=== PATIENT | female | born 1985 | race Caucasian/White ===

== ENCOUNTER 2022-10-13 10:08 | Emergency (ER) | payer OTHER ==
[~2022-10-13] VITALS: Ht 165.1 cm; Wt 59.0 kg
[2022-10-13 10:26] VITALS: BP 150/98
[2022-10-13 15:49] LABS: *AMPHETAMINES SCREEN URINE NEGATIVE (NEGATIVE); *BARBITURATES SCREEN URINE NEGATIVE (NEGATIVE); *BENZODIAZEPINES SCREEN URINE NEGATIVE (NEGATIVE); *COCAINE SCREEN URINE NEGATIVE (NEGATIVE); CANNABINOID URINE SCREEN NEGATIVE (NEGATIVE); METHADONE URINE SCREEN NEGATIVE (NEGATIVE); OPIATES URINE SCREEN NEGATIVE (NEGATIVE); PHENCYCLIDINE URINE SCREEN NEGATIVE (NEGATIVE)
== END 2022-10-13 15:52 | disposition home or self-care (01) ==
LOC: ER 10:08
DX: B34.9 Viral infection, unspecified (principal); Z20.822 Contact with and (suspected) exposure to COVID-19; Z98.51 Tubal ligation status
CPT/HCPCS: 71045; 80305; 81025; 87426; 87804; 99284; C9803

== ENCOUNTER 2022-12-15 15:21 | Emergency (ER) | payer OTHER ==
[~2022-12-15] VITALS: Ht 165.1 cm; Wt 65.0 kg
[2022-12-15 15:44] VITALS: BP 112/77
[2022-12-15 19:18] LABS: BASOPHILS % 0.4 % (0.0-2.0); EOSINOPHILS % 2.2 % (0.0-5.0); HEMATOCRIT. 37.7 % (36.0-48.0); HEMOGLOBIN. 12.3 g/dL (12.0-16.0); LYMPHOCYTES % 33.8 % (20.0-50.0); MEAN CORPUSCULAR VOLUME 85.7 fL (81.0-99.0); MONOCYTES % 10.8 % (2.0-8.0); NEUTROPHILS % 52.8 % (40.0-76.0); PLATELET 323 x1000/uL (130-400); RED CELL DISTRIBUTION WIDTH 14.8 % (11.6-14.6)
[2022-12-15 19:28] LABS: HCG SCREEN NEGATIVE
[2022-12-15 19:29] LABS: CHLORIDE 108 mEq/L (98-107)
== END 2022-12-15 20:53 | disposition home or self-care (01) ==
LOC: ER 15:21
DX: R07.9 Chest pain, unspecified (principal); I51.7 Cardiomegaly; E78.00 Pure hypercholesterolemia, unspecified; F17.210 Nicotine dependence, cigarettes, uncomplicated; Z98.890 Other specified postprocedural states; Z98.51 Tubal ligation status
CPT/HCPCS: 36415; 71045; 80053; 83880; 84484; 84703; 85025; 93005; 99285

== ENCOUNTER 2023-01-19 01:54 | Emergency (ER) | payer OTHER ==
[~2023-01-19] VITALS: Ht 165.1 cm; Wt 65.1 kg
[2023-01-19 02:03] VITALS: BP 126/84
[2023-01-19] MEDS ORDERED: IBUPROFEN 400MG TABLET PO ONE (03:00)
[2023-01-19] MEDS ORDERED: ACETAMINOPHEN 325MG TABLET PO ONE (03:00)
[2023-01-19] MEDS ORDERED: NAPR500T7 MT (04:47)
[2023-01-19] MEDS ORDERED: TOPUD MT (04:47)
[2023-01-20] MEDS ORDERED: T3 PO (18:55)
== END 2023-01-19 05:07 | disposition home or self-care (01) ==
LOC: ER 01:54
DX: S52.122A Displaced fracture of head of left radius, initial encounter for closed fracture (principal); W05.1XXA Fall from non-moving nonmotorized scooter, initial encounter; Y93.89 Activity, other specified; Y92.89 Other specified places as the place of occurrence of the external cause; Y99.8 Other external cause status
CPT/HCPCS: 29125; 73080; 73110; 99284; A4565

== ENCOUNTER 2023-01-20 17:39 | Emergency (ER) | payer OTHER ==
[~2023-01-20] VITALS: Ht 165.1 cm; Wt 62.7 kg
[~2023-01-20 17:39] MED LIST: NAPR500T7 MT; TOPUD MT
[2023-01-20 17:48] VITALS: BP 127/64
[2023-01-20] MEDS ORDERED: T3 PO (18:55)
[2023-01-20] MEDS ORDERED: HYDROCODONE/ACETAMINOPHEN 5/325MG TABLET PO ONE (19:00)
== END 2023-01-20 20:21 | disposition home or self-care (01) ==
LOC: ER 17:39
DX: S42.302A Unspecified fracture of shaft of humerus, left arm, initial encounter for closed fracture (principal); X58.XXXA Exposure to other specified factors, initial encounter; Y93.89 Activity, other specified; Y92.89 Other specified places as the place of occurrence of the external cause; Y99.8 Other external cause status; Z98.890 Other specified postprocedural states
CPT/HCPCS: 81025; 99283

== ENCOUNTER 2023-01-23 16:49 | Emergency (ER) | payer OTHER ==
[~2023-01-23] VITALS: Ht 165.1 cm; Wt 59.1 kg
[~2023-01-23 16:49] MED LIST changes: +T3 PO
[2023-01-23 17:10] VITALS: BP 146/85
[2023-01-23] MEDS ORDERED: ACETAMINOPHEN 325MG TABLET PO ONE (19:00)
== END 2023-01-23 19:35 | disposition home or self-care (01) ==
LOC: ER 16:49
DX: S52.91XA Unspecified fracture of right forearm, initial encounter for closed fracture (principal); X58.XXXA Exposure to other specified factors, initial encounter; Y93.89 Activity, other specified; Y92.89 Other specified places as the place of occurrence of the external cause; Y99.8 Other external cause status
CPT/HCPCS: 29105; 73060; 81025; 99283

== ENCOUNTER 2023-07-20 08:45 | Emergency (ER) | payer OTHER ==
[~2023-07-20] VITALS: Ht 160 cm; Wt 68.0 kg
[2023-07-20 09:04] VITALS: O2SAT 100
[2023-07-20] MEDS ORDERED: MAGNESIUM/ALUMINUM HYDROXIDE/SIMETHICONE 30ML UDC PO STA (09:20)
[2023-07-20 09:30] LABS: BASOPHILS % 0.6 % (0.0-2.0); EOSINOPHILS % 2.2 % (0.0-5.0); HEMOGLOBIN. 12.8 g/dL (12.0-16.0); MEAN CORPUSCULAR HEMOGLOBIN 27.8 pg (28.0-32.0); MEAN CORPUSCULAR HGB CONC 32.9 g/dL (31.0-37.0); MEAN CORPUSCULAR VOLUME 84.6 fL (81.0-99.0); MEAN PLATELET VOLUME 9.8 fl (7.4-10.4); MONOCYTES % 7.1 % (2.0-8.0); NEUTROPHILS % 63.1 % (40.0-76.0); PLATELET 226 x1000/uL (130-400); RED BLOOD CELL COUNT 4.61 mill/uL (4.2-5.4); RED CELL DISTRIBUTION WIDTH 16.5 % (11.6-14.6); WHITE BLOOD COUNT 6.7 x1000/uL (4.5-11.0)
[2023-07-20 09:50] LABS: CHLORIDE 110 mEq/L (98-107); INDEX HEMOLYSI 1 (1-3); INDEX ICTERIC 1 (1-4); INDEX LIPEMIC 1 (1-3); POTASSIUM 3.9 mEq/L (3.5-5.1); SODIUM 138 mEq/L (136-145)
[2023-07-20 10:00] LABS: ALANINE AMINOTRANSFERASE 23 IU/L (13-61); ALBUMIN 3.7 g/dL (3.4-5.0); ASPARTATE AMINOTRANSFERASE 16 IU/L (15-37); BILIRUBIN TOTAL 0.8 mg/dL (0.1-1.0); CARBON DIOXIDE 26 mEq/L (21-32); CREATININE 0.5 mg/dL (0.6-1.3); GLUCOSE 109 mg/dL (70-105); PROTEIN TOTAL 7.1 g/dL (6.0-8.3); UREA NITROGEN BLOOD 12 mg/dL (7-21)
[2023-07-20 10:44] LABS: HCG SCREEN NEGATIVE
[2023-07-20 11:45] LABS: CLARITY URINE CLOUDY (CLEAR); COLOR URINE YELLOW (YELLOW); GLUCOSE URINE NEGATIVE (NEGATIVE); KETONES URINE NEGATIVE (NEGATIVE); LEUKOCYTE ESTERASE URINE 2+ (NEGATIVE); NITRITE URINE NEGATIVE (NEGATIVE); OCCULT BLOOD URINE NEGATIVE (NEGATIVE); PH URINE 5.5 (4.5-8.0); PROTEIN URINE NEGATIVE (NEGATIVE); SPECIFIC GRAVITY URINE 1.025 (1.005-1.030)
[2023-07-20 11:56] LABS: WBC URINE 25-50 /hpf (0-2)
[2023-07-20 11:57] LABS: BACTERIA URINE 2+; RBC URINE 0-2 /hpf (0-2); SQUAMOUS EPITHELIAL CELL URINE 1+ /lpf (RARE/1+)
[2023-07-20] MEDS ORDERED: CEPH500T MT (12:37)
[2023-07-20] MEDS ORDERED: IBUP-2029 MT (12:37)
[2023-07-20 13:39] VITALS: BP 114/79; PULSE 76; RESP 19; TEMP 98.2
== END 2023-07-20 13:40 | disposition home or self-care (01) ==
LOC: ER 08:45
DX: N30.00 Acute cystitis without hematuria (principal)
CPT/HCPCS: 36415; 74176; 80053; 81003; 84703; 85025; 87077; 87186; 99284

== ENCOUNTER 2023-10-31 21:25 | Emergency (ER) | payer OTHER ==
[~2023-10-31 21:25] MED LIST changes: +CEPH500T MT; +IBUP-2029 MT
[2023-10-31 21:49] VITALS: PULSE 100
[2023-11-01] MEDS ORDERED: IBUP-2029 MT (22:35)
== END 2023-10-31 22:56 | disposition left against medical advice (07) ==
LOC: ER 21:25
DX: R51.9 Headache, unspecified (principal); Z53.21 Procedure and treatment not carried out due to patient leaving prior to being seen by health care provider
CPT/HCPCS: 99281

== ENCOUNTER 2023-11-01 13:52 | Emergency (ER) | payer OTHER ==
[~2023-11-01] VITALS: Ht 165.1 cm; Wt 61.2 kg
[2023-11-01 14:07] VITALS: O2SAT 99
[2023-11-01] MEDS ORDERED: ACETAMINOPHEN 325MG TABLET PO ONE (20:00)
[2023-11-01 20:35] VITALS: TEMP 98.2
[2023-11-01] MEDS ORDERED: KETOROLAC 30MG/ML VIAL IM ONE (22:30)
[2023-11-01] MEDS ORDERED: IBUP-2029 MT (22:35)
[2023-11-01 23:39] VITALS: BP 184/101; PULSE 68; RESP 18
== END 2023-11-01 23:39 | disposition home or self-care (01) ==
LOC: ER 13:52
DX: S00.83XA Contusion of other part of head, initial encounter (principal); S09.90XA Unspecified injury of head, initial encounter; I50.9 Heart failure, unspecified; Z98.890 Other specified postprocedural states; Y04.0XXA Assault by unarmed brawl or fight, initial encounter; Y93.89 Activity, other specified; Y92.89 Other specified places as the place of occurrence of the external cause; Y99.8 Other external cause status
CPT/HCPCS: 99285; 70450; 81025; 70486; 96372; J1885